=== PATIENT | female | born 1970 | race African-American/Black ===

== ENCOUNTER 2021-03-09 00:46 | Emergency (ER) | payer BC ==
[~2021-03-09] VITALS: Ht 162.6 cm; Wt 90.7 kg
[2021-03-09 01:51] LABS: URINE BILIRUBIN NEGATIVE (Negative); URINE BLOOD TRACE (Negative); URINE CLARITY SL CLOUDY; URINE COLOR YELLOW; URINE GLUCOSE-RANDOM* NEGATIVE (Negative); URINE KETONES 1+ (Negative); URINE LEUKOCYTES-REFLEX NEGATIVE (Negative); URINE NITRITE-REFLEX NEGATIVE (Negative); URINE PROTEIN (DIPSTICK) 1+ (Negative); URINE SPECIFIC GRAVITY >= 1.030 (1.005-1.035)
[2021-03-09 01:52] LABS: BASOPHILS 0.4 % (0.0-2.0); EOSINOPHILS 0.1 % (0.0-3.0); HEMATOCRIT 33.1 % (37.0-47.0); HEMOGLOBIN 10.1 gm/dL (12.0-15.0); LYMPHOCYTES 11.5 % (24.0-44.0); MCH 22.7 pg (26.0-34.0); MCHC 30.5 g/dL (28.0-37.0); MCV 74.4 fL (80.0-100.0); PLATELET COUNT 268 thou/uL (150-400); RBC 4.45 mil/uL (4.20-5.00); RDW 17.5 % (10.5-14.5); WBC 7.3 thou/uL (4.0-11.0)
[2021-03-09 01:58] LABS: ANION GAP 10 mmol/L (7-16); BUN 17 mg/dL (7-18); CALCIUM 10.2 mg/dL (8.5-10.1); CHLORIDE 109 mmol/L (98-107); CO2 24 mmol/L (21-32); CREATININE 0.8 mg/dL (0.6-1.0); GLUCOSE 107 mg/dL (74-106); POTASSIUM 4.7 mmol/L (3.5-5.1); SODIUM 143 mmol/L (136-145)
[2021-03-09 02:07] LABS: SQUAMOUS 4-10 Moderate /LPF (0-3)
[2021-03-09 02:07] LABS: TROPONIN-I <0.06 ng/mL (<0.06)
[2021-03-09 02:08] LABS: BACTERIA-REFLEX 1-9 Few /HPF (None Seen); CRYSTALS None Seen /LPF (None Seen); HYALINE CASTS 4-10 Moderate /LPF (None Seen); MUCUS 4-6 Moderate strn/LPF (None Seen); URINE RBC 3-10 Few /HPF (0-2); URINE WBC-REFLEX 0-5 Rare /HPF (0-5)
[2021-03-09] MEDS ORDERED: MECLIZINE HCL25 M1 PO (03:31)
[2021-03-09 03:35] VITALS: BP 116/62
--- NOTE | 2021-03-10 11:04 | EKG ---
[place] [address] [facility] [place] [address] ELECTROCARDIOGRAM REPORT Name: EDIN DAMON Room #: DEP AMPARO Reid#: [id number] Admission: 03/09/21 Attend Phys: Discharge: 03/09/21 Date of : 68 Report #: [id number] [facility] ED Test Date: 2021-03-09 Test Time: 01:07:07 Pat Name: EDIN DAMON Department: Room: Gender: F Behavioral Health Case Manager: BOB : 1970 Requested By: Darío Hernandez Order Number: [id number] MD: Obi Thakur Measurements Intervals [place] Rate: 61 P: 5 SD: 156 QRS: -24 QRSD: 90 T: 9 QT: 446 QTc: 450 Interpretive Statements Sinus rhythm Borderline left axis deviation Borderline T abnormalities, inferior leads No previous ECG available for comparison Electronically Signed On 03-10-2021 11:03:51 CDT by Obi Thakur [email or web address] <ELECTRONICALLY SIGNED> By: Obi Thakur MD 03/10/21 1103 [id number] Obi Thakur MD /ABNER
== END 2021-03-09 03:45 | disposition home or self-care (01) ==
LOC: ER 00:46
PROVIDERS: Emergency Medicine
DX: S01.81XA Laceration without foreign body of other part of head, initial encounter (principal); R42 Dizziness and giddiness; J45.909 Unspecified asthma, uncomplicated; W18.39XA Other fall on same level, initial encounter; Y93.89 Activity, other specified; Y92.89 Other specified places as the place of occurrence of the external cause; Y99.8 Other external cause status